=== PATIENT | male | born 1975 | race Caucasian/White ===

== ENCOUNTER 2023-12-15 06:54 | Emergency (ER) | payer OTHER, SELFPAY ==
[2023-12-15 06:57] VITALS: BP 164/89; PULSE 62; TEMP 37; O2SAT 98; BMI 32.4
--- NOTE | 2023-12-15 07:20 | ED_ITS ---
HPI - Dental/Oral General Chief complaint: Dental/Oral Stated complaint: DENTAL PAIN Time Seen by Provider: 12/15/23 07:06 Source: patient Mode of arrival: walk-in History of Present Illness HPI Narrative: The patient presenting to us with a dental pain that started over the last few days, patient that the pain started in the area where he had a tooth extracted almost 6 months ago, patient denies any other complaints Related Data Previous Rx's ?Medication ?Instructions ?Recorded amoxicillin 875 mg-potassium 1 tab PO Q12H #14 tabs 12/15/23 clavulanate 125 mg tablet ibuprofen 600 mg tablet 600 mg PO TID PRN pain #20 tabs 12/15/23 Allergies Allergy/AdvReac Type Severity Reaction Status Date / Time No Known Drug Allergies Allergy Verified 12/15/23 07:00 Review of Systems ROS Status of ROS 10 or more systems reviewed and unremark able except as noted in history and below Exam Narrative Exam Narrative: Dental exam showed that the patient have multiple dental works and there is a blood-filled bullae like gum inflammation in the site of the tooth #13 and there is tenderness upon palpation No airway compromise and the swelling is almost 0.75 cm in size at almost the size of the teeth surrounding it Nurses notes and vital signs reviewed and patient is not hypoxic. General: Well-appearing and in no apparent distress. Skin: Warm, dry, no pallor noted. No rash. Head: Normocephalic, atraumatic. Neck: Supple, non-tender. Eye: Pupils are equal, round and EOMI. No scleral icterus. Ears, Nose, Mouth, and Throat: TM are clear, no nasal mucosal hypertrophy. Oral mucosa is moist, no posterior oropharynx erythema, uvula is mid-line Cardiovascular: Regular Rate and Rhythm without murmur, gallop or rub. Respiratory: No accessory muscle use or respiratory distress. Lungs are clear to auscultation, no wheezing, rales or rhonchi Chest Wall: no tenderness Back: No midline thoracic or lumbar vertebral tenderness. No CVA tenderness Musculoskeletal: normal ROM, no calf or popliteal tenderness, no lower extremity edema/swelling GI: Abdomen is soft, non-distended. Normal bowel sounds. No masses appreciated. No tenderness to palpation. No rebound, guarding, or rigidity noted. Neurological: A&O x4. No cranial nerve dysfunction observed. No truncal ataxia. Moves all extremities. Sensation intact. Psychiatric: Cooperative and interactive. Normal mood and affect. Constitutional Vital Signs, click to edit/add: Last Vital Signs Temp 98.6 F 12/15/23 06:57 Pulse 62 12/15/23 06:57 Resp 18 12/15/23 06:57 BP 164/89 H 12/15/23 06:57 Pulse Ox 98 12/15/23 06:57 O2 Del Method Room Air 12/15/23 06:57 Course Vital Signs Vital signs: Vital Signs Temperature 98.6 F 12/15/23 06:57 Pulse Rate 62 12/15/23 06:57 Respiratory Rate 18 12/15/23 06:57 Blood Pressure 164/89 H 12/15/23 06:57 Pulse Oximetry 98 12/15/23 06:57 Oxygen Delivery Method Room Air 12/15/23 06:57 Temperature 98.6 F 12/15/23 06:57 Pulse Rate 62 12/15/23 06:57 Respiratory Rate 18 12/15/23 06:57 Blood Pressure 164/89 H 12/15/23 06:57 Pulse Oximetry 98 12/15/23 06:57 Oxygen Delivery Method Room Air 12/15/23 06:57 MDM - Dental/Oral MDM Narrative Medical decision making narrative: The patient right now presenting with dental pain mostly secondary to inflammation mostly secondary to irritation of the gum I did explain to him right now that we will start him on antibiotic Augmentin in addition to high- dose anti-inflammatory ibuprofen for pain management The patient to follow-up with a dentist within few days for further evaluation he is also to come back in case of any increase in the pain or the swelling The patient is to follow up with primary care physician in next 2-3 days or to return to the emergency department should any of the signs or symptoms worsen or new symptoms develop. The patient agrees with the following Diagnosis and Treatment plan and the patient will be discharged home. Discharge Plan Discharge Chief Complaint: Dental/Oral Clinical Impression: Toothache Patient Disposition: Home, Self-Care Time of Disposition Decision: 07:16 Condition: Good Prescriptions / Home Meds: New amoxicillin-pot clavulanate 875-125 mg tablet 1 tab PO Q12H Qty: 14 0RF ibuprofen 600 mg tablet 600 mg PO TID PRN (Reason: pain) Qty: 20 0RF Print Language: Macedonian Instructions: Toothache (ED) Referrals: Gonzalez Montilla MD [Primary Care Provider] - 1 week
[2023-12-15] MEDS: BENZOCAINE 30 ML, lidocaine HCL 15 ML MM (07:30)
== END 2023-12-15 07:32 | disposition home or self-care (01) ==
PROVIDERS: Emergency Provider Emergency Medicine; PCP Family Medicine
DX: K08.89 Other specified disorders of teeth and supporting structures (principal)
CPT/HCPCS: 99283